=== PATIENT | female | born 2000 | race Two or more races ===

== ENCOUNTER 2023-03-02 11:50 | Emergency (ER) | payer OTHER ==
[~2023-03-02] VITALS: Ht 157.5 cm; Wt 88.5 kg
[~2023-03-02 11:50] MED LIST: CEPH500C2 PO; IBUP-1955 PO
[2023-03-02] MEDS ORDERED: ACETAMINOPHEN 325 MG TABLET ONE (12:56)
[2023-03-02] MEDS ORDERED: IBUPROFEN 400 MG TABLET ONE (12:56)
[2023-03-02] MEDS ORDERED: IBUPROFEN 400 MG TABLET PO ONE (13:00)
[2023-03-02] MEDS ORDERED: ACETAMINOPHEN 325 MG TABLET PO ONE (13:00)
[2023-03-02 13:10] LABS: *URINE HCG, QUAL NEGATIVE (NEGATIVE)
[2023-03-02] MEDS ORDERED: NAPR-1164 PO (14:23)
[2023-03-02 14:43] VITALS: BP 124/75; TEMP 98.5; O2SAT 99
== END 2023-03-02 14:43 | disposition home or self-care (01) ==
LOC: ER 11:50
DX: M54.16 Radiculopathy, lumbar region (principal); Z79.1 Long term (current) use of non-steroidal anti-inflammatories (NSAID); Z79.899 Other long term (current) drug therapy
CPT/HCPCS: 72131; 84703; A4606; A4663

== ENCOUNTER 2023-07-07 12:06 | Emergency (ER) | payer BC, OTHER ==
[~2023-07-07] VITALS: Ht 152.4 cm; Wt 90.7 kg
[~2023-07-07 12:06] MED LIST changes: +NAPR-1164 PO
[2023-07-07] MEDS ORDERED: METOCLOPRAMIDE HCL 10 MG TABLET ONE (12:39)
[2023-07-07] MEDS ORDERED: IBUPROFEN 600 MG TABLET ONE (12:39)
[2023-07-07] MEDS ORDERED: ACETAMINOPHEN ES 500 MG TABLET ONE (12:40)
[2023-07-07] MEDS: METOCLOPRAMIDE HCL 10 MG TABLET PO ONE (12:45)
[2023-07-07] MEDS: ACETAMINOPHEN 325 MG TABLET PO ONE (12:47)
[2023-07-07] MEDS: IBUPROFEN 600 MG TABLET PO ONE (12:47)
[2023-07-07 13:15] VITALS: O2SAT 99
== END 2023-07-07 13:19 | disposition home or self-care (01) ==
LOC: ER 12:06
DX: J06.9 Acute upper respiratory infection, unspecified (principal); R05.9 Cough, unspecified; R09.81 Nasal congestion; G43.909 Migraine, unspecified, not intractable, without status migrainosus; Z79.899 Other long term (current) drug therapy; Z20.822 Contact with and (suspected) exposure to COVID-19
CPT/HCPCS: A4606; A4663; A9150; J8597

== ENCOUNTER 2023-11-01 09:43 | Emergency (ER) | payer BC, OTHER ==
[~2023-11-01] VITALS: Ht 157.5 cm; Wt 90.7 kg
[2023-11-01] MEDS ORDERED: CLINDAMYCIN HCL 150 MG CAPSULE PO ONE (10:15)
[2023-11-01] MEDS ORDERED: CLIN300C12 PO (10:19)
[2023-11-01] MEDS ORDERED: IBUP-1955 PO (10:19)
[2023-11-01] MEDS ORDERED: ACETAMINOPHEN ES 500 MG TABLET ONE (10:20)
[2023-11-01] MEDS ORDERED: predniSONE 50 MG TABLET ONE (10:20)
[2023-11-01] MEDS ORDERED: CLINDAMYCIN HCL 300 MG CAPSULE ONE (10:22)
[2023-11-01] MEDS: ACETAMINOPHEN 325 MG TABLET PO ONE (10:25)
[2023-11-01] MEDS: CLINDAMYCIN HCL 150 MG CAPSULE PO ONE (10:25)
[2023-11-01] MEDS: predniSONE 50 MG TABLET PO ONE (10:25)
[2023-11-01 11:08] VITALS: BP 127/80; TEMP 98; O2SAT 99
== END 2023-11-01 11:08 | disposition home or self-care (01) ==
LOC: ER 09:48
DX: K11.21 Acute sialoadenitis (principal); G43.909 Migraine, unspecified, not intractable, without status migrainosus; Z79.899 Other long term (current) drug therapy
CPT/HCPCS: 99284; J7512; A4606; A4663; A9150

== ENCOUNTER 2024-03-09 20:43 | Emergency (ER) | payer BC, OTHER ==
[~2024-03-09] VITALS: Ht 157.5 cm; Wt 95.3 kg
[~2024-03-09 20:43] MED LIST changes: +CLIN300C12 PO
[2024-03-09] MEDS ORDERED: KETOROLAC TROMETHAMINE 30 MG INJ ONE (21:20)
[2024-03-09] MEDS: KETOROLAC TROMETHAMINE 30 MG INJ IM ONE (21:25)
[2024-03-09 21:40] LABS: *BILIRUBIN,URIN NEGATIVE (NEGATIVE); *BLOOD, URINE 2+ (NEGATIVE); *CLARITY,URINE CLEAR (CLEAR); *COLOR,URINE YELLOW (YELLOW); *KETONES,URINE NEGATIVE (NEGATIVE); *PROTEIN,URINE NEGATIVE (NEGATIVE); *UROBILINOGEN,URINE 0.2 E.U./dl (NORMAL); LEUKOCYTE ESTERASE ,URINE TRACE (NEGATIVE); NITRITE, URINE NEGATIVE (NEGATIVE); PH,URINE 7.5 (5.0-8.0); UGLUCOSE NEGATIVE (NEGATIVE)
[2024-03-09 21:42] LABS: *URINE HCG, QUAL NEGATIVE (NEGATIVE)
[2024-03-09 21:53] LABS: BACTERIA,URINE MODERATE /HPF (NONE SEEN); SQUAMOUS EPITHELIAL CELL,UR MODERATE /HPF (NONE SEEN); WBC,URINE 0-3 /HPF (0-3)
[2024-03-09 21:55] LABS: *AMPHETAMINE, URINE NEGATIVE (NEGATIVE); *BARBITURATE, URINE NEGATIVE (NEGATIVE); *BENZODIAZEPINE, URINE NEGATIVE (NEGATIVE); *CANNABINOID, URINE NEGATIVE (NEGATIVE); *COCCAINE, URINE NEGATIVE (NEGATIVE); *OPIATE, URINE NEGATIVE (NEGATIVE); *PHENCYCLIDINE SCREEN,URINE NEGATIVE (NEGATIVE); FENTANYL, URINE NEGATIVE (NEGATIVE)
[2024-03-09] MEDS ORDERED: KETO10TA2 PO (22:41)
[2024-03-09] MEDS ORDERED: NITR100C6 PO (22:41)
[2024-03-09 23:37] VITALS: BP 131/79; TEMP 97.2; O2SAT 98
== END 2024-03-09 23:38 | disposition home or self-care (01) ==
LOC: ER 20:47
DX: M54.16 Radiculopathy, lumbar region (principal); R10.2 Pelvic and perineal pain; N39.0 Urinary tract infection, site not specified; G43.909 Migraine, unspecified, not intractable, without status migrainosus; Z79.899 Other long term (current) drug therapy
CPT/HCPCS: 99285; 72131; 84703; 96372; 80307; 81001; J1885; A4606; A4663

== ENCOUNTER 2024-09-02 21:25 | Emergency (ER) | payer BC, OTHER ==
[~2024-09-02] VITALS: Ht 157.5 cm; Wt 102.1 kg
[~2024-09-02 21:25] MED LIST changes: +KETO10TA2 PO; +NITR100C6 PO
[2024-09-02] MEDS ORDERED: ACETAMINOPHEN 500 MG TABLET ONE (22:23)
[2024-09-02] MEDS: ACETAMINOPHEN 500 MG TABLET PO ONE (22:28)
[2024-09-02 22:29] LABS: BASOPHILS # (AUTO) 0.1 K/UL (0.0-0.2); BASOPHILS % (AUTO) 0.5 % (0.0-2.0); EOSINOPHILS % (AUTO) 0.2 % (0.0-7.0); HEMATOCRIT 36.8 % (31.2-41.9); HEMOGLOBIN 12.2 g/dL (10.9-14.3); LYMPHOCYTES # (AUTO) 1.1 K/uL (0.8-4.8); LYMPHOCYTES % (AUTO) 8.6 % (20.5-51.5); MEAN CORPUSCULAR HEMOGLOBIN 28.8 uug (24.7-32.8); MEAN CORPUSCULAR HGB CONC 33 g/dL (32.3-35.6); MEAN CORPUSCULAR VOLUME 86.8 fL (75.5-95.3); MONOCYTES # (AUTO) 0.8 K/uL (0.1-1.30); MONOCYTES % (AUTO) 6.1 % (0.0-11.0); NEUTROPHILS # (AUTO) 11.2 K/uL (1.8-8.9); NEUTROPHILS % (AUTO) 84.6 % (38.5-71.5); PLATELET COUNT (AUTO) 229 K/uL (179-408); RED BLOOD CELL COUNT(AUTO) 4.23 MIL/uL (3.63-4.92); RED CELL DISTRIBUTION WIDTH 13.6 % (12.3-17.7); WHITE BLOOD COUNT (AUTO) 13.3 K/uL (3.8-11.8)
[2024-09-02 22:30] LABS: DIFFERENTIAL COMMENT 1
[2024-09-02 22:37] LABS: CALCIUM 8.6 mg/dL (8.5-10.1); CREATININE 0.8 mg/dL (0.6-1.3); POTASSIUM 4.1 mmol/L (3.5-5.1)
[2024-09-02 22:43] LABS: ALBUMIN 3.3 g/dL (3.4-5.0); BILIRUBIN,DIRECT 0.2 mg/dL (0.0-0.2); BILIRUBIN,TOTAL 0.6 mg/dL (0.2-1.0); TOTAL PROTEIN, SERUM 7.7 g/dL (6.4-8.2)
[2024-09-02] MEDS: IV NS 1000 ML 1,000 ML IV ONE (22:48)
[2024-09-03] MEDS ORDERED: AZITHROMYCIN 250 MG TABLET ONE (01:19)
[2024-09-03] MEDS ORDERED: KETOROLAC TROMETHAMINE 30 MG INJ ONE (01:19)
[2024-09-03] MEDS: AZITHROMYCIN 250 MG TABLET PO ONE (01:29)
[2024-09-03] MEDS: KETOROLAC TROMETHAMINE 30 MG INJ IVP ONE (01:29)
[2024-09-03] MEDS: IV NORMAL SALINE 1000 ML BAG IV ONE (02:16)
[2024-09-03] MEDS ORDERED: AZIT500T PO (02:17)
[2024-09-03] MEDS ORDERED: ACET325T53 PO (02:17)
[2024-09-03 03:12] VITALS: BP 103/63; TEMP 98.9; O2SAT 99
[2024-09-05] MEDS ORDERED: CIPR-262 PO (08:22)
== END 2024-09-03 03:12 | disposition home or self-care (01) ==
LOC: ER 21:25
DX: J06.9 Acute upper respiratory infection, unspecified (principal); G43.909 Migraine, unspecified, not intractable, without status migrainosus; R07.9 Chest pain, unspecified
CPT/HCPCS: 99285; 96361 ×2; 71045; 80076; 80048; 85025; 84145; 85730; 87040 ×2; 87186 ×2; 87086; 87077 ×2; 36415; 93005; 83605; 96374; J1885; J7040 ×2; A4606; A4663; A9150; Q0144